=== PATIENT | male | born 1950 | race Caucasian/White ===

== ENCOUNTER → 2017-11-25 | Outpatient (CLI) | payer OTHER ==
[2017-11-25] VITALS (12 sets, daily range): BP systolic 108–141; BP diastolic 71–97
[~2017-11-25] MED LIST: CARDIZEM CD180 MG; ELIQUIS2.5 MG PO; FISH OIL 1,001000 M2 PO; POTASSIUM GLUC500 MG PO; VITAMIN B-12500 MCG PO; VITAMIN E1000 UNI2 PO
--- NOTE | 2017-11-25 14:37 | TEE ---
[place] [address] TRANSESOPHAGEAL ECHOCARDIOGRAM Name: BRENDAN HERNANDEZ Room: [facility]#: [id number] Admission: 11/25/17 Attend Phys: Grayson Subramanian MD Discharge: Date of : 54 Date of Service: 11/25/17 1437 Report #: [id number] THIS REPORT FOR: //name// APPROVED REPORT Study performed: 11/25/2017 12:56:23 EXAM: Transesophageal Echocardiogram Patient Location: Out-Patient Status: routine BSA: 1.98 HR: 87 bpm BP: 141/90 mmHg Rhythm: Atrial Flutter Other Information Study Quality: Excellent Indications PRE-ABLATION, ATRIAL FLUTTER Echo Enhancing Agent Indication: Rule out Shunt Agent(s) / Amount(s) Used: Agitated Saline 20 cc Procedure After obtaining informed consent, patient underwent transesophageal echo in the [facility] [employer]. Type of Sedation : Conscious Sedation Sedation was administered by Mulu Pond RN. Sedation start time: 1334 Case end Time: 1352 Sedation was achieved intravenously with: Versed (6) Fentanyl (50) Transesophageal probe was inserted and advanced into esophagus without difficulty by Grayson Subramanian MD, LOCATED WITHIN [facility]. Echo enhancement indication: R/O Septal defect. Echo enhancement agent administered: Agitated Saline The ACE was performed without complications. Throughout the procedure, the blood pressure, pulse oximetry, cardiac rhythm, and rate were monitored. The patient tolerated the procedure without adverse effects. Recovery from conscious sedation was uneventful and vital signs were stable[place] [address] TRANSESOPHAGEAL ECHOCARDIOGRAM Name: DAVIDBRENDAN FRANKLYN Room: [facility]#: [id number] Admission: 11/25/17 Attend Phys: Grayson Subramanian MD Discharge: Date of : 54 Date of Service: 11/25/17 1437 Report #: [id number] The left ventricle is normal size. There is normal LV segmental wall motion. Mild concentric left ventricular hypertrophy. Left ventricular systolic function is normal. The left ventricular ejection fraction is within the normal range. LVEF is 60-65%. This study is not technically sufficient to allow evaluation of the LV diastolic function due to atrial fibrillation. Right Ventricle The right ventricle is normal size. The right ventricular systolic function is normal. Atria Left atrium is moderately dilated. No thrombus is visualized in the left atrium or appendage. Small bidirectional shunt noted in the mid atrial septum The right atrium size is normal. Aortic Valve The aortic valve is normal in structure. No aortic regurgitation is present. There is no aortic valvular stenosis. Mitral Valve The mitral valve is normal in structure. Mild mitral regurgitation. No evidence of mitral valve stenosis. Tricuspid Valve The tricuspid valve is normal in structure. Mild tricuspid regurgitation. Pulmonic Valve The pulmonary valve is normal in structure. There is no pulmonic valvular regurgitation. Great Vessels The aortic root is normal in size. Pericardium There is no pericardial effusion. <Conclusion> Mild concentric left ventricular hypertrophy. LVEF is 60-65%. Left atrium is moderately dilated. No thrombus is visualized in the left atrium or appendage. Small bidirectional shunt noted in the [place] [address] TRANSESOPHAGEAL ECHOCARDIOGRAM Name: DAVIDBRENDAN WORTHINGTON Room: [facility].#: [id number] Admission: 11/25/17 Attend Phys: Grayson Subramanian MD Discharge: Date of : 54 Date of Service: 11/25/171436 Report #: [id number] Mild mitral regurgitation. Mild tricuspid regurgitation. <ELECTRONICALLY SIGNED> By: Grayson Subramanian MD, FACC 11/25/171436 36 36 Grayson Subramanian MD, FACC /INF
== END | disposition home or self-care (01) ==
LOC: M.CL 12:14
DX: I51.7 Cardiomegaly (principal); I34.0 Nonrheumatic mitral (valve) insufficiency; Z79.01 Long term (current) use of anticoagulants